=== PATIENT | female | born 1955 | race Caucasian/White ===

== ENCOUNTER → 2016-06-02 | Outpatient (CLI) | payer MEDICARE ==
[~2016-06-02] MED LIST: ASCO500T8 PO; ASPI-496 PO; CALC-451 PO; FLUO10CA7 PO; FLUO40CA2 PO; INSU100I11 SQ; INSU100V8 SQ; INSU200I4 SQ; LEVO100T5 PO; LEVO50TA PO; LEVO75TA5 PO; LINA5TAB PO; LISI-167 PO; LISI1TAB5 PO; MINE3.5O31 LEFTEYE; SIMV20TA PO; SULF15DR5 LEFTEYE; SULF1TAB24 PO; VALP250C59 PO
== END | disposition home or self-care (01) ==
LOC: CFH 12:47
PROVIDERS: ATTEND Nurse Practitioner
DX: J43.8 Other emphysema (principal); R59.9 Enlarged lymph nodes, unspecified
CPT/HCPCS: 71250

== ENCOUNTER 2016-08-25 16:14 | Inpatient (IN) | payer MEDICARE ==
[~2016-08-25] VITALS: Ht 162.6 cm; Wt 70.3 kg
[2016-08-25] MEDS ORDERED: ONDANSETRON 2MG/ML, 2ML IVPush ONE (17:00)
[2016-08-25] MEDS ORDERED: SODIUM CHLORIDE FLUSH 10ML SYR IVF ONE (17:00)
[2016-08-25 17:16] LABS: PH, VENOUS 7.413 pH (7.320-7.420)
[2016-08-25 17:34] LABS: ASPARTATE AMINO TRANSFERASE 43 U/L (15-37); BLOOD UREA NITROGEN 34 mg/dL (7-18)
[2016-08-25 17:41] LABS: IS PT STATUS REG ER OR PRE ER? YES
[2016-08-25] MEDS ORDERED: LORazepam 1MG TABLET ONE (19:05)
[2016-08-25] MEDS ORDERED: LORazepam 1MG TABLET PO ONE (19:30)
[2016-08-25] MEDS ORDERED: SODIUM CHLORIDE 0.9% 1,000ML IVBOLUS ONE (20:00)
[2016-08-25] MEDS ORDERED: hydrALAzine 20 MG/ML, 1ML IVPush PRN (20:30)
[2016-08-25] MEDS ORDERED: POLYETHYLENE GLYCOL 17 GM PACKET PO PRN (20:30)
[2016-08-25] MEDS ORDERED: LORazepam 2 MG/ML, 1ML IVPush PRN (20:30)
[2016-08-25] MEDS ORDERED: HYDROmorphone 2 MG/ML, 1ML IVPush PRN (20:30)
[2016-08-25] MEDS ORDERED: ACETAMINOPHEN 325 MG TABLET PO PRN (20:30)
[2016-08-25] MEDS ORDERED: TEMPLATE NON-FORMULARY MED. (Insulin Glargine,Hum.rec.anlog** (Lantus**) 20 UNITS) SQ SCH (20:30)
[2016-08-25] MEDS ORDERED: ONDANSETRON 2MG/ML, 2ML IVPush PRN (20:30)
[2016-08-25] MEDS ORDERED: OXYcodone IR 5MG TABLET PO PRN (20:30)
[2016-08-25] MEDS ORDERED: BISACODYL 10 MG SUPP PR PRN (20:30)
[2016-08-25] MEDS ORDERED: VALPROATE SODIUM 500 MG in DEXTROSE 5% 100 ML IV SCH (20:30)
[2016-08-25] MEDS ORDERED: ENALAPRILAT 1.25 MG/ML, 2ML IVPush PRN (20:30)
[2016-08-25] MEDS ORDERED: LEVOTHYROXINE 100 MCG INJ IVPush ONE (21:00)
[2016-08-25] MEDS: OCULAR LUBRICANT OPHTH OINT 3.5 GM LEFTEYE SCH (21:00)
[2016-08-25 22:00] VITALS: BP 110/56
[2016-08-25] MEDS: SULFACETAMIDE OPHTH 10%, 5ML LEFTEYE SCH (22:00)
[2016-08-25] MEDS: SODIUM CHLORIDE 0.9% 1,000 ML IV SCH (22:45)
[2016-08-25] MEDS: HEPARIN 5,000 UNITS/ML, 1ML SQ SCH (22:45)
[2016-08-25] MEDS: VALPROIC ACID 250 MG CAPSULE PO SCH (22:46)
[2016-08-25] MEDS: SIMVASTATIN 20 MG TABLET PO SCH (22:46)
[2016-08-25] MEDS: INSULIN ASPART 100 UNITS/ML, PEN SQ-INSULIN SCH (22:47)
[2016-08-25] MEDS: INSULIN DETEMIR 100 UNITS/ML, PEN SQ-INSULIN SCH (22:47)
[2016-08-26 01:47] VITALS: BP 119/71
[2016-08-26] MEDS: HEPARIN 5,000 UNITS/ML, 1ML SQ SCH ×3 (05:10→20:40)
[2016-08-26 06:00] LABS: ASPARTATE AMINO TRANSFERASE 21 U/L (15-37); BLOOD UREA NITROGEN 31 mg/dL (7-18)
[2016-08-26] MEDS: SULFACETAMIDE OPHTH 10%, 5ML LEFTEYE SCH ×8 (08:00→22:00)
[2016-08-26 08:10] VITALS: BP 155/84
[2016-08-26] MEDS: CALCIUM/VITAMIN D3 250-125 TABLET PO SCH (08:45)
[2016-08-26] MEDS: ASCORBIC ACID 500 MG TABLET PO SCH (08:45)
[2016-08-26] MEDS: LISINOPRIL 20 MG TABLET PO SCH (08:45)
[2016-08-26] MEDS: FLUOXETINE 20 MG CAPSULE PO SCH (08:45)
[2016-08-26] MEDS: VALPROIC ACID 250 MG CAPSULE PO SCH ×2 (08:45→20:38)
[2016-08-26] MEDS: SENNA/DOCUSATE TABLET PO SCH (08:46)
[2016-08-26] MEDS: ASPIRIN 81 MG TABLET EC PO SCH (08:46)
[2016-08-26] MEDS: INSULIN DETEMIR 100 UNITS/ML, PEN SQ-INSULIN SCH (08:58)
[2016-08-26] MEDS: INSULIN ASPART 100 UNITS/ML, PEN SQ-INSULIN SCH ×4 (08:58→20:40)
[2016-08-26] MEDS: SODIUM CHLORIDE 0.9% 1,000 ML IV SCH (08:59)
[2016-08-26] MEDS: HYDROCHLOROTHIAZIDE 12.5 MG CAPSULE PO SCH (08:59)
[2016-08-26] MEDS ORDERED: LEVOTHYROXINE 100 MCG TABLET PO SCH (09:00)
[2016-08-26] MEDS ORDERED: LEVOTHYROXINE 125 MCG TABLET PO SCH (09:00)
[2016-08-26 15:06] VITALS: BP 112/56
[2016-08-26 15:30] LABS: IS PT STATUS REG ER OR PRE ER? NO
[2016-08-26] MEDS ORDERED: MAGNESIUM SULFATE PMX 2GM/50ML 50 ML IV ONE (16:30)
[2016-08-26 19:35] VITALS: BP 106/62
[2016-08-26] MEDS: SIMVASTATIN 20 MG TABLET PO SCH (20:39)
[2016-08-26] MEDS ORDERED: INSULIN DETEMIR 100 UNITS/ML, PEN SQ-INSULIN SCH (21:00)
[2016-08-26] MEDS: OCULAR LUBRICANT OPHTH OINT 3.5 GM LEFTEYE SCH (21:00)
[2016-08-27 01:11] VITALS: BP 148/75
[2016-08-27] MEDS: LEVOTHYROXINE 100 MCG TABLET PO SCH (05:22)
[2016-08-27] MEDS: HEPARIN 5,000 UNITS/ML, 1ML SQ SCH ×3 (05:22→22:24)
[2016-08-27 06:01] LABS: BLOOD UREA NITROGEN 26 mg/dL (7-18)
[2016-08-27 07:24] VITALS: BP 129/74
[2016-08-27] MEDS: SULFACETAMIDE OPHTH 10%, 5ML LEFTEYE SCH ×8 (07:50→22:23)
[2016-08-27] MEDS: ASCORBIC ACID 500 MG TABLET PO SCH (08:11)
[2016-08-27] MEDS: INSULIN ASPART 100 UNITS/ML, PEN SQ-INSULIN SCH ×4 (08:11→21:14)
[2016-08-27] MEDS: ASPIRIN 81 MG TABLET EC PO SCH (08:11)
[2016-08-27] MEDS: LISINOPRIL 20 MG TABLET PO SCH (08:11)
[2016-08-27] MEDS: CALCIUM/VITAMIN D3 250-125 TABLET PO SCH (08:11)
[2016-08-27] MEDS: FLUOXETINE 20 MG CAPSULE PO SCH (08:11)
[2016-08-27] MEDS: HYDROCHLOROTHIAZIDE 12.5 MG CAPSULE PO SCH (08:12)
[2016-08-27] MEDS: VALPROIC ACID 250 MG CAPSULE PO SCH ×2 (08:12→21:12)
[2016-08-27] MEDS: SENNA/DOCUSATE TABLET PO SCH (09:00)
[2016-08-27] MEDS: INSULIN DETEMIR 100 UNITS/ML, PEN SQ-INSULIN SCH ×2 (09:51→21:13)
[2016-08-27 12:55] VITALS: BP 130/70
[2016-08-27] MEDS ORDERED: VALPROATE SODIUM 500 MG in DEXTROSE 5% 100 ML IV ONE (18:09)
[2016-08-27 20:00] VITALS: BP 112/58
[2016-08-27] MEDS: OCULAR LUBRICANT OPHTH OINT 3.5 GM LEFTEYE SCH (21:00)
[2016-08-27] MEDS: SIMVASTATIN 20 MG TABLET PO SCH (21:13)
[2016-08-28 02:00] VITALS: BP 133/69
[2016-08-28 05:38] LABS: BLOOD UREA NITROGEN 28 mg/dL (7-18)
[2016-08-28] MEDS: LEVOTHYROXINE 100 MCG TABLET PO SCH (06:20)
[2016-08-28] MEDS: HEPARIN 5,000 UNITS/ML, 1ML SQ SCH ×3 (06:20→22:42)
[2016-08-28 07:00] VITALS: BP 124/70
[2016-08-28] MEDS: ASCORBIC ACID 500 MG TABLET PO SCH (08:49)
[2016-08-28] MEDS: FLUOXETINE 20 MG CAPSULE PO SCH (08:49)
[2016-08-28] MEDS: CALCIUM/VITAMIN D3 250-125 TABLET PO SCH (08:49)
[2016-08-28] MEDS: SENNA/DOCUSATE TABLET PO SCH (08:49)
[2016-08-28] MEDS: HYDROCHLOROTHIAZIDE 12.5 MG CAPSULE PO SCH (08:49)
[2016-08-28] MEDS: ASPIRIN 81 MG TABLET EC PO SCH (08:49)
[2016-08-28] MEDS: LISINOPRIL 20 MG TABLET PO SCH (08:49)
[2016-08-28] MEDS: VALPROIC ACID 250 MG CAPSULE PO SCH ×3 (08:49→21:34)
[2016-08-28] MEDS: SULFACETAMIDE OPHTH 10%, 5ML LEFTEYE SCH ×8 (08:50→22:42)
[2016-08-28] MEDS: INSULIN ASPART 100 UNITS/ML, PEN SQ-INSULIN SCH ×4 (08:50→21:35)
[2016-08-28] MEDS: INSULIN DETEMIR 100 UNITS/ML, PEN SQ-INSULIN SCH ×2 (08:51→21:34)
[2016-08-28 12:36] VITALS: BP 135/76
[2016-08-28 20:00] VITALS: BP 126/68
[2016-08-28] MEDS: OCULAR LUBRICANT OPHTH OINT 3.5 GM LEFTEYE SCH (21:34)
[2016-08-28] MEDS: SIMVASTATIN 20 MG TABLET PO SCH (22:42)
[2016-08-29 02:00] VITALS: BP 135/75
[2016-08-29 05:55] LABS: BLOOD UREA NITROGEN 27 mg/dL (7-18)
[2016-08-29] MEDS: HEPARIN 5,000 UNITS/ML, 1ML SQ SCH ×3 (06:29→22:11)
[2016-08-29] MEDS: LEVOTHYROXINE 100 MCG TABLET PO SCH (06:29)
[2016-08-29 06:47] VITALS: BP 115/68
[2016-08-29] MEDS: CALCIUM/VITAMIN D3 250-125 TABLET PO SCH (07:48)
[2016-08-29] MEDS: ASCORBIC ACID 500 MG TABLET PO SCH (07:48)
[2016-08-29] MEDS: ASPIRIN 81 MG TABLET EC PO SCH (07:48)
[2016-08-29] MEDS: SENNA/DOCUSATE TABLET PO SCH (07:48)
[2016-08-29] MEDS: SULFACETAMIDE OPHTH 10%, 5ML LEFTEYE SCH ×8 (07:48→22:10)
[2016-08-29] MEDS: HYDROCHLOROTHIAZIDE 12.5 MG CAPSULE PO SCH (07:49)
[2016-08-29] MEDS: FLUOXETINE 20 MG CAPSULE PO SCH (07:49)
[2016-08-29] MEDS: LISINOPRIL 20 MG TABLET PO SCH (07:49)
[2016-08-29] MEDS: VALPROIC ACID 250 MG CAPSULE PO SCH ×3 (07:49→21:13)
[2016-08-29] MEDS: INSULIN ASPART 100 UNITS/ML, PEN SQ-INSULIN SCH ×4 (07:50→21:15)
[2016-08-29] MEDS: INSULIN DETEMIR 100 UNITS/ML, PEN SQ-INSULIN SCH ×2 (07:50→21:14)
[2016-08-29 12:48] VITALS: BP 129/74
[2016-08-29 20:00] VITALS: BP 117/71
[2016-08-29] MEDS: OCULAR LUBRICANT OPHTH OINT 3.5 GM LEFTEYE SCH (21:13)
[2016-08-29] MEDS: SIMVASTATIN 20 MG TABLET PO SCH (21:14)
[2016-08-30 02:00] VITALS: BP 125/73
[2016-08-30 05:58] LABS: BLOOD UREA NITROGEN 36 mg/dL (7-18)
[2016-08-30] MEDS: LEVOTHYROXINE 100 MCG TABLET PO SCH (06:14)
[2016-08-30] MEDS: HEPARIN 5,000 UNITS/ML, 1ML SQ SCH ×3 (06:15→21:42)
[2016-08-30 06:57] VITALS: BP 129/79
[2016-08-30] MEDS: INSULIN ASPART 100 UNITS/ML, PEN SQ-INSULIN SCH ×4 (08:44→20:51)
[2016-08-30] MEDS: SULFACETAMIDE OPHTH 10%, 5ML LEFTEYE SCH ×8 (08:44→23:11)
[2016-08-30] MEDS: HYDROCHLOROTHIAZIDE 12.5 MG CAPSULE PO SCH (08:45)
[2016-08-30] MEDS: CALCIUM/VITAMIN D3 250-125 TABLET PO SCH (08:45)
[2016-08-30] MEDS: VALPROIC ACID 250 MG CAPSULE PO SCH ×3 (08:45→20:50)
[2016-08-30] MEDS: LISINOPRIL 20 MG TABLET PO SCH (08:45)
[2016-08-30] MEDS: INSULIN DETEMIR 100 UNITS/ML, PEN SQ-INSULIN SCH ×2 (08:45→20:50)
[2016-08-30] MEDS: ASPIRIN 81 MG TABLET EC PO SCH (08:45)
[2016-08-30] MEDS: SENNA/DOCUSATE TABLET PO SCH (08:46)
[2016-08-30] MEDS: ASCORBIC ACID 500 MG TABLET PO SCH (08:46)
[2016-08-30] MEDS: FLUOXETINE 20 MG CAPSULE PO SCH (08:46)
[2016-08-30 12:22] VITALS: BP 110/59
[2016-08-30] MEDS ORDERED: ZONISAMIDE 50 MG CAPSULE PO SCH (14:30)
[2016-08-30] MEDS ORDERED: ZONISAMIDE 50 MG CAPSULE PO ONE (15:30)
[2016-08-30 20:07] VITALS: BP 108/71
[2016-08-30] MEDS: SIMVASTATIN 20 MG TABLET PO SCH (20:50)
[2016-08-30] MEDS: OCULAR LUBRICANT OPHTH OINT 3.5 GM LEFTEYE SCH (21:42)
[2016-08-31 02:06] VITALS: BP 114/71
[2016-08-31] MEDS: HEPARIN 5,000 UNITS/ML, 1ML SQ SCH ×3 (05:44→21:26)
[2016-08-31] MEDS: LEVOTHYROXINE 112 MCG TABLET PO SCH (06:12)
[2016-08-31 06:20] LABS: ASPARTATE AMINO TRANSFERASE 16 U/L (15-37); BLOOD UREA NITROGEN 36 mg/dL (7-18)
[2016-08-31 06:39] VITALS: BP 103/66
[2016-08-31] MEDS: INSULIN ASPART 100 UNITS/ML, PEN SQ-INSULIN SCH ×4 (08:03→20:47)
[2016-08-31] MEDS: INSULIN DETEMIR 100 UNITS/ML, PEN SQ-INSULIN SCH ×2 (08:04→20:47)
[2016-08-31] MEDS: SULFACETAMIDE OPHTH 10%, 5ML LEFTEYE SCH ×8 (08:04→21:26)
[2016-08-31] MEDS: HYDROCHLOROTHIAZIDE 12.5 MG CAPSULE PO SCH (08:05)
[2016-08-31] MEDS: FLUOXETINE 20 MG CAPSULE PO SCH (08:05)
[2016-08-31] MEDS: VALPROIC ACID 250 MG CAPSULE PO SCH ×3 (08:05→20:46)
[2016-08-31] MEDS: ASCORBIC ACID 500 MG TABLET PO SCH (08:05)
[2016-08-31] MEDS: CALCIUM/VITAMIN D3 250-125 TABLET PO SCH (08:05)
[2016-08-31] MEDS: ASPIRIN 81 MG TABLET EC PO SCH (08:05)
[2016-08-31] MEDS: LISINOPRIL 20 MG TABLET PO SCH (08:05)
[2016-08-31] MEDS: SENNA/DOCUSATE TABLET PO SCH (08:06)
[2016-08-31] MEDS: ZONISAMIDE 50 MG CAPSULE PO SCH (08:06)
[2016-08-31 12:37] VITALS: BP 118/70
[2016-08-31] MEDS: SIMVASTATIN 20 MG TABLET PO SCH (20:46)
[2016-08-31] MEDS: OCULAR LUBRICANT OPHTH OINT 3.5 GM LEFTEYE SCH (20:46)
[2016-08-31 21:00] VITALS: BP 111/66
[2016-09-01 01:54] VITALS: BP 107/68
[2016-09-01 05:50] LABS: BLOOD UREA NITROGEN 31 mg/dL (7-18)
[2016-09-01] MEDS: LEVOTHYROXINE 112 MCG TABLET PO SCH (05:52)
[2016-09-01] MEDS: HEPARIN 5,000 UNITS/ML, 1ML SQ SCH ×3 (05:52→21:27)
[2016-09-01 08:03] VITALS: BP 96/60
[2016-09-01] MEDS: INSULIN DETEMIR 100 UNITS/ML, PEN SQ-INSULIN SCH ×2 (08:41→22:16)
[2016-09-01] MEDS: INSULIN ASPART 100 UNITS/ML, PEN SQ-INSULIN SCH ×4 (08:41→22:16)
[2016-09-01] MEDS: FLUOXETINE 20 MG CAPSULE PO SCH (08:42)
[2016-09-01] MEDS: SULFACETAMIDE OPHTH 10%, 5ML LEFTEYE SCH ×8 (08:43→22:00)
[2016-09-01] MEDS: VALPROIC ACID 250 MG CAPSULE PO SCH ×3 (08:43→21:27)
[2016-09-01] MEDS: CALCIUM/VITAMIN D3 250-125 TABLET PO SCH (08:44)
[2016-09-01] MEDS: ASPIRIN 81 MG TABLET EC PO SCH (08:44)
[2016-09-01] MEDS: HYDROCHLOROTHIAZIDE 12.5 MG CAPSULE PO SCH ×2 (08:44→08:47)
[2016-09-01] MEDS: LISINOPRIL 20 MG TABLET PO SCH ×2 (08:44→08:47)
[2016-09-01] MEDS: SENNA/DOCUSATE TABLET PO SCH (08:44)
[2016-09-01] MEDS: ASCORBIC ACID 500 MG TABLET PO SCH (08:44)
[2016-09-01] MEDS: ZONISAMIDE 50 MG CAPSULE PO SCH (08:45)
[2016-09-01 08:46] VITALS: BP 99/61
[2016-09-01 13:26] VITALS: BP 107/68
[2016-09-01 20:00] VITALS: BP 106/67
[2016-09-01] MEDS: SIMVASTATIN 20 MG TABLET PO SCH (21:27)
[2016-09-01] MEDS: OCULAR LUBRICANT OPHTH OINT 3.5 GM LEFTEYE SCH (21:28)
[2016-09-02 01:19] VITALS: BP 99/61
[2016-09-02] MEDS: LEVOTHYROXINE 112 MCG TABLET PO SCH (05:20)
[2016-09-02] MEDS: HEPARIN 5,000 UNITS/ML, 1ML SQ SCH ×2 (05:20→12:57)
[2016-09-02 06:24] LABS: BLOOD UREA NITROGEN 36 mg/dL (7-18)
[2016-09-02 07:44] VITALS: BP 103/65
[2016-09-02] MEDS: VALPROIC ACID 250 MG CAPSULE PO SCH (08:55)
[2016-09-02] MEDS: SULFACETAMIDE OPHTH 10%, 5ML LEFTEYE SCH ×3 (08:55→12:57)
[2016-09-02] MEDS: FLUOXETINE 20 MG CAPSULE PO SCH (08:55)
[2016-09-02] MEDS: CALCIUM/VITAMIN D3 250-125 TABLET PO SCH (08:55)
[2016-09-02] MEDS: ASCORBIC ACID 500 MG TABLET PO SCH (08:55)
[2016-09-02] MEDS: HYDROCHLOROTHIAZIDE 12.5 MG CAPSULE PO SCH (08:55)
[2016-09-02] MEDS: ASPIRIN 81 MG TABLET EC PO SCH (08:55)
[2016-09-02] MEDS: LISINOPRIL 20 MG TABLET PO SCH (08:56)
[2016-09-02] MEDS: ZONISAMIDE 50 MG CAPSULE PO SCH (08:56)
[2016-09-02] MEDS: INSULIN DETEMIR 100 UNITS/ML, PEN SQ-INSULIN SCH (08:56)
[2016-09-02] MEDS: SENNA/DOCUSATE TABLET PO SCH (08:57)
[2016-09-02] MEDS: INSULIN ASPART 100 UNITS/ML, PEN SQ-INSULIN SCH ×2 (08:57→12:57)
[2016-09-02 13:24] VITALS: BP 95/60
[2016-09-02] MEDS ORDERED: ZONI50CA2 PO (13:56)
[2016-09-02] MEDS ORDERED: DIVA500T2 PO (15:06)
[2016-09-02] MEDS ORDERED: FLUO60TA PO (15:06)
[2016-09-02] MEDS ORDERED: LEVO112T2 PO (15:07)
== END 2016-09-02 15:38 | disposition home or self-care (01) | DRG 100 ==
LOC: ED 18:59 → EDIP 20:07 → 4EST 21:13
PROVIDERS: ADMIT Internal Medicine; ATTEND Hospitalist
DX: G40.209 Localization-related (focal) (partial) symptomatic epilepsy and epileptic syndromes with complex partial seizures, not intractable, without status epilepticus (principal); G93.41 Metabolic encephalopathy; R53.2 Functional quadriplegia; E44.0 Moderate protein-calorie malnutrition; E03.9 Hypothyroidism, unspecified; I10 Essential (primary) hypertension; E05.00 Thyrotoxicosis with diffuse goiter without thyrotoxic crisis or storm; Z88.6 Allergy status to analgesic agent; E10.21 Type 1 diabetes mellitus with diabetic nephropathy; E10.22 Type 1 diabetes mellitus with diabetic chronic kidney disease; E10.65 Type 1 diabetes mellitus with hyperglycemia; F32.9 Major depressive disorder, single episode, unspecified; H05.20 Unspecified exophthalmos; H53.2 Diplopia; I12.9 Hypertensive chronic kidney disease with stage 1 through stage 4 chronic kidney disease, or unspecified chronic kidney disease; I48.91 Unspecified atrial fibrillation; M81.0 Age-related osteoporosis without current pathological fracture; N18.3 Chronic kidney disease, stage 3 (moderate); Z79.899 Other long term (current) drug therapy; Z87.891 Personal history of nicotine dependence; Z91.14 Patient's other noncompliance with medication regimen; Z68.26 Body mass index [BMI] 26.0-26.9, adult; R00.1 Bradycardia, unspecified
CPT/HCPCS: 36415; 70450; 70551; 71010; 80048; 80053; 80061; 80164; 81003; 82010; 82607; 82803; 82947; 82962; 83036; 83735; 84100; 84439; 84443; 84481; 84484; 85025; 93005; 93306; 95819; 95951; 99285; J1644; J1815; J2405; J2060; J3475; J7030

== ENCOUNTER → 2016-11-10 | Outpatient (CLI) | payer MEDICARE ==
[~2016-11-10] MED LIST changes: +DIVA500T2 PO; +FLUO60TA PO; +GADOBUTROL 7.5 MMOL/7.5 ML PFS ONE; +LEVO112T2 PO; +ZONI50CA2 PO
== END | disposition home or self-care (01) ==
LOC: RAD 15:41
PROVIDERS: ATTEND Psychiatry & Neurology Neurology
DX: E05.00 Thyrotoxicosis with diffuse goiter without thyrotoxic crisis or storm (principal); H05.20 Unspecified exophthalmos
CPT/HCPCS: 70480; 70543; A9585

== ENCOUNTER 2016-11-25 12:18 | Inpatient (IN) | payer MEDICARE ==
[~2016-11-25] VITALS: Ht 162.6 cm; Wt 66.2 kg
[~2016-11-25 12:18] MED LIST changes: -GADOBUTROL 7.5 MMOL/7.5 ML PFS ONE
[2016-11-25] MEDS ORDERED: SODIUM CHLORIDE FLUSH 10ML SYR IVF ONE (13:00)
[2016-11-25 13:01] LABS: HEMATOCRIT 37.6 % (34.6-47.8); HEMOGLOBIN 12.4 g/dL (11.7-16.4); WHITE BLOOD COUNT 10.3 x10^3/uL (3.4-10)
[2016-11-25 13:13] LABS: ASPARTATE AMINO TRANSFERASE 36 U/L (15-37); BLOOD UREA NITROGEN 45 mg/dL (7-18)
[2016-11-25 13:19] LABS: ACETAMINOPHEN < 2 mcg/mL (10-30)
[2016-11-25] MEDS ORDERED: SODIUM CHLORIDE 0.9%, 500ML IVBOLUS ONE (13:30)
[2016-11-25 15:41] LABS: DAU SCREEN DISCLAIMER
[2016-11-25 15:47] LABS: PATH.CAST-FLAG NOT PRESENT; SPERM-FLAG NOT PRESENT; SRC-FLAG NOT PRESENT; XTAL-FLAG NOT PRESENT; YLC-FLAG NOT PRESENT
[2016-11-25] MEDS ORDERED: HYDROmorphone 1 MG/ML, 1ML IVPush PRN (16:30)
[2016-11-25] MEDS ORDERED: ACETAMINOPHEN 325 MG TABLET PO PRN (18:00)
[2016-11-25] MEDS: INSULIN ASPART 100 UNITS/ML, PEN SQ-INSULIN SCH (21:00)
[2016-11-25] MEDS: LACTATED RINGERS 1,000 ML IV SCH (22:52)
[2016-11-25] MEDS: SIMVASTATIN 20 MG TABLET PO SCH (23:28)
[2016-11-25] MEDS: VALPROIC ACID 250 MG CAPSULE PO SCH (23:29)
[2016-11-26 01:13] VITALS: BP 136/78
[2016-11-26 01:25] VITALS: BP 136/78
[2016-11-26] MEDS: LACTATED RINGERS 1,000 ML IV SCH ×3 (01:52→17:34)
[2016-11-26 06:03] LABS: BLOOD UREA NITROGEN 32 mg/dL (7-18)
[2016-11-26 08:41] VITALS: BP 130/72
[2016-11-26] MEDS: VALPROIC ACID 250 MG CAPSULE PO SCH ×3 (09:58→21:00)
[2016-11-26] MEDS: INSULIN ASPART 100 UNITS/ML, PEN SQ-INSULIN SCH ×4 (11:00→21:22)
[2016-11-26 13:51] VITALS: BP 124/62
[2016-11-26 19:50] VITALS: BP 125/60
[2016-11-26] MEDS: SIMVASTATIN 20 MG TABLET PO SCH (21:22)
[2016-11-27 00:21] VITALS: BP 136/72
[2016-11-27] MEDS: LACTATED RINGERS 1,000 ML IV SCH (01:53)
[2016-11-27 06:10] LABS: BLOOD UREA NITROGEN 22 mg/dL (7-18)
[2016-11-27 07:43] VITALS: BP 153/71
[2016-11-27] MEDS: INSULIN ASPART 100 UNITS/ML, PEN SQ-INSULIN SCH ×2 (08:49→12:27)
[2016-11-27] MEDS: VALPROIC ACID 250 MG CAPSULE PO SCH (08:49)
[2016-11-27] MEDS ORDERED: DIVA500T2 PO (11:50)
== END 2016-11-27 13:03 | disposition home or self-care (01) | DRG 917 ==
LOC: ED 15:40 → EDIP 15:41 → INTOOBSV 15:41 → ED 18:36 → 3NE 11-26 00:03 → OBSVTOIN 11-26 10:31
PROVIDERS: ADMIT Hospitalist; ATTEND Hospitalist
DX: T38.1X1A Poisoning by thyroid hormones and substitutes, accidental (unintentional), initial encounter (principal); G92 Toxic encephalopathy; E10.21 Type 1 diabetes mellitus with diabetic nephropathy; N17.9 Acute kidney failure, unspecified; G40.209 Localization-related (focal) (partial) symptomatic epilepsy and epileptic syndromes with complex partial seizures, not intractable, without status epilepticus; H05.20 Unspecified exophthalmos; N18.3 Chronic kidney disease, stage 3 (moderate); E03.9 Hypothyroidism, unspecified; E10.22 Type 1 diabetes mellitus with diabetic chronic kidney disease; Z88.5 Allergy status to narcotic agent; E05.90 Thyrotoxicosis, unspecified without thyrotoxic crisis or storm; F32.9 Major depressive disorder, single episode, unspecified; I12.9 Hypertensive chronic kidney disease with stage 1 through stage 4 chronic kidney disease, or unspecified chronic kidney disease; M81.0 Age-related osteoporosis without current pathological fracture; Z87.891 Personal history of nicotine dependence; Z90.49 Acquired absence of other specified parts of digestive tract; Z90.710 Acquired absence of both cervix and uterus; Y92.89 Other specified places as the place of occurrence of the external cause
CPT/HCPCS: 36415; 70450; 71010; 76770; 80048; 80053; 80069; 80164; 80307; 80329; 81001; 82140; 82962; 83605; 84436; 84443; 84481; 85025; 87086; 87324; 93005; 96360; G0378; J1815; G0479; G0480; J7040; J7120

== ENCOUNTER 2017-02-16 07:19 | Inpatient (IN) | payer MEDICARE ==
[~2017-02-16] VITALS: Ht 162.6 cm; Wt 73.2 kg
[2017-02-16] MEDS ORDERED: SODIUM CHLORIDE 0.9% 1,000ML IVBOLUS ONE ×2 (07:30→09:00)
[2017-02-16 07:35] LABS: BASOPHILS # (AUTO) 0.07 x10^3/uL (0-0.1); BASOPHILS % (AUTO) 1 % (0-1); EOSINOPHILS # (AUTO) 0.14 x10^3/uL (0-0.4); EOSINOPHILS % (AUTO) 1 % (1-7); LYMPHOCYTES # (AUTO) 2.56 x10^3/uL (1-3.4); LYMPHOCYTES % (AUTO) 20 % (22-44); MD NO; MEAN CORPUSCULAR HEMOGLOBIN 29.3 pg (27.0-34.8); MEAN CORPUSCULAR HGB CONC 33.6 g/dL (32.4-35.8); MEAN CORPUSCULAR VOLUME 87.3 fL (80-100); MEAN PLATELET VOLUME 10.3 fL (7.4-10.4); MONOCYTES # (AUTO) 0.43 x10^3/uL (0.2-0.8); MONOCYTES % (AUTO) 3 % (2-9); NEUTROPHILS % (AUTO) 75 % (42-75); PLATELET COUNT 208 x10^3/uL (130-400); RED BLOOD COUNT 4.52 x10^6/uL (3.82-5.3); RED CELL DISTRIBUTION WIDTH 13.8 % (9.6-15.2)
[2017-02-16 07:47] LABS: ALBUMIN 3.3 g/dL (3.4-5.0); ANION GAP 25 mmol/L (5-15); CHLORIDE 95 mmol/L (98-107); CREATININE 1.66 mg/dL (0.55-1.02)
[2017-02-16] MEDS ORDERED: MORPHINE SULFATE 4 MG/ML, 1ML ONE (08:07)
[2017-02-16] MEDS ORDERED: ONDANSETRON 2MG/ML, 2ML ONE (08:07)
[2017-02-16 08:13] LABS: ACETONE, SERUM Large (80mg/dL) mg/dL (Negative)
[2017-02-16] MEDS ORDERED: FENTANYL PF 100 MCG/2ML ONE (08:18)
[2017-02-16 08:27] LABS: MICROSCOPIC NOT IND
[2017-02-16 08:27] LABS: TROPONIN I < 0.015 ng/mL (0.000-0.045)
[2017-02-16 08:30] LABS: CULTURE INDICATED? NO
[2017-02-16] MEDS ORDERED: ONDANSETRON 2MG/ML, 2ML IVPush ONE (08:30)
[2017-02-16] MEDS ORDERED: FENTANYL PF 100 MCG/2ML IV ONE (08:30)
[2017-02-16] MEDS ORDERED: REGULAR INSULIN 62.5 UNITS in SODIUM CHLORIDE 0.9% 249.375 ML IV SCH (08:42)
[2017-02-16 08:53] LABS: PH, VENOUS 7.112 pH (7.320-7.420)
[2017-02-16] MEDS ORDERED: INSULIN REGULAR 100 UNITS/ML, 3ML VIAL ONE (09:00)
[2017-02-16] MEDS ORDERED: INSULIN REGULAR 100 UNITS/ML, 3ML VIAL IVPush ONE (09:00)
[2017-02-16] MEDS ORDERED: POLYETHYLENE GLYCOL 17 GM PACKET PO PRN (10:00)
[2017-02-16] MEDS ORDERED: REGULAR INSULIN 62.5 UNITS in SODIUM CHLORIDE 0.9% 249.375 ML IV PRN (10:00)
[2017-02-16] MEDS ORDERED: ACETAMINOPHEN 325 MG TABLET PO PRN (10:00)
[2017-02-16] MEDS ORDERED: DOCUSATE 100 MG CAPSULE PO PRN (10:00)
[2017-02-16] MEDS ORDERED: BISACODYL 10 MG SUPP PR PRN (10:00)
[2017-02-16 10:17] LABS: ANION GAP 23 mmol/L (5-15); CALCIUM 7.5 mg/dL (8.5-10.1); CHLORIDE 104 mmol/L (98-107)
[2017-02-16 10:18] LABS: CREATININE 1.51 mg/dL (0.55-1.02)
[2017-02-16 10:27] LABS: HEMOGLOBIN A1C 8.6 % (4.2-6.3)
[2017-02-16] MEDS ORDERED: ZONI100C2 PO (11:33)
[2017-02-16] MEDS: SODIUM CHLORIDE 0.9% 1,000 ML IV SCH ×3 (11:55→21:25)
[2017-02-16] MEDS: HEPARIN 5,000 UNITS/ML, 1ML SQ SCH ×2 (11:55→20:19)
[2017-02-16] MEDS: FAMOTIDINE 20 MG/2 ML IVPush SCH (11:55)
[2017-02-16 14:13] LABS: RAPID INFLUENZA A Negative (Negative); RAPID INFLUENZA B Negative (Negative)
[2017-02-16] MEDS ORDERED: MAGNESIUM SULFATE PMX 4GM/100M 100 ML IV ONE (14:30)
[2017-02-16] MEDS: D5%-0.45% NACL 1,000 ML IV PRN (15:38)
[2017-02-16] MEDS: DIVALPROEX 500 MG TABLET.DR PO SCH ×2 (16:48→20:21)
[2017-02-16 17:35] LABS: ANION GAP 9 mmol/L (5-15); CALCIUM 8.1 mg/dL (8.5-10.1); CHLORIDE 112 mmol/L (98-107); CREATININE 1.48 mg/dL (0.55-1.02)
[2017-02-16] MEDS: SIMVASTATIN 20 MG TABLET PO SCH (20:19)
[2017-02-16] MEDS ORDERED: DIVALPROEX 250 MG TABLET.DR PO SCH (21:00)
[2017-02-16 21:45] LABS: ANION GAP 10 mmol/L (5-15); CHLORIDE 111 mmol/L (98-107); CREATININE 1.37 mg/dL (0.55-1.02)
[2017-02-17] MEDS: D5%-0.45% NACL 1,000 ML IV PRN (01:22)
[2017-02-17 01:54] LABS: ANION GAP 8 mmol/L (5-15); CALCIUM 7.8 mg/dL (8.5-10.1); CHLORIDE 112 mmol/L (98-107); CREATININE 1.45 mg/dL (0.55-1.02)
[2017-02-17] MEDS: HEPARIN 5,000 UNITS/ML, 1ML SQ SCH ×3 (04:41→20:50)
[2017-02-17 04:45] LABS: BASOPHILS # (AUTO) 0.04 x10^3/uL (0-0.1); BASOPHILS % (AUTO) 0 % (0-1); EOSINOPHILS # (AUTO) 0.12 x10^3/uL (0-0.4); EOSINOPHILS % (AUTO) 1 % (1-7); LYMPHOCYTES # (AUTO) 3.55 x10^3/uL (1-3.4); LYMPHOCYTES % (AUTO) 35 % (22-44); MD NO; MEAN CORPUSCULAR HEMOGLOBIN 29.8 pg (27.0-34.8); MEAN CORPUSCULAR VOLUME 87.5 fL (80-100); MEAN PLATELET VOLUME 9.7 fL (7.4-10.4); MONOCYTES # (AUTO) 0.65 x10^3/uL (0.2-0.8); MONOCYTES % (AUTO) 6 % (2-9); NEUTROPHILS # (AUTO) 5.73 x10^3/uL (1.8-6.8); NEUTROPHILS % (AUTO) 57 % (42-75); PLATELET COUNT 162 x10^3/uL (130-400); RED BLOOD COUNT 3.71 x10^6/uL (3.82-5.3)
[2017-02-17 04:50] LABS: ALANINE AMINOTRANSFERASE 18 U/L (12-78); ALBUMIN 2.5 g/dL (3.4-5.0); ANION GAP 8 mmol/L (5-15); CALCIUM 7.4 mg/dL (8.5-10.1); CHLORIDE 113 mmol/L (98-107); CREATININE 1.39 mg/dL (0.55-1.02)
[2017-02-17] MEDS: SODIUM CHLORIDE 0.9% 1,000 ML IV SCH (04:51)
[2017-02-17 04:59] LABS: ALKALINE PHOSPHATASE 59 U/L (45-117); BILIRUBIN,TOTAL 0.2 mg/dL (0.2-1.0); THYROID STIMULATING HORMONE 0.269 mIU/L (0.358-3.740); TOTAL PROTEIN 5.5 g/dL (6.4-8.2)
[2017-02-17] MEDS: INSULIN ASPART 100 UNITS/ML, PEN SQ-INSULIN SCH ×4 (07:00→22:51)
[2017-02-17] MEDS: INSULIN DETEMIR 100 UNITS/ML, PEN SQ-INSULIN SCH ×2 (07:10→22:50)
[2017-02-17] MEDS: FAMOTIDINE 20 MG/2 ML IVPush SCH (09:30)
[2017-02-17] MEDS: FLUOXETINE 20 MG CAPSULE PO SCH (09:30)
[2017-02-17] MEDS: ASPIRIN 81 MG TABLET EC PO SCH (09:30)
[2017-02-17] MEDS: DIVALPROEX 500 MG TABLET.DR PO SCH ×3 (09:30→20:50)
[2017-02-17 11:13] VITALS: BP 107/71
[2017-02-17] MEDS ORDERED: INSU100C5 SQ-INSULIN (12:31)
[2017-02-17] MEDS ORDERED: LEVO100T5 PO (12:31)
[2017-02-17 14:15] VITALS: BP 120/64
[2017-02-17 19:04] VITALS: BP 130/70
[2017-02-17] MEDS: SIMVASTATIN 20 MG TABLET PO SCH (20:50)
[2017-02-18 00:11] VITALS: BP 149/71
[2017-02-18] MEDS ORDERED: INSULIN ASPART 100 UNITS/ML, PEN SQ-INSULIN ONE (01:00)
[2017-02-18 05:37] LABS: MEAN CORPUSCULAR HEMOGLOBIN 29.9 pg (27.0-34.8); MEAN CORPUSCULAR HGB CONC 34.5 g/dL (32.4-35.8); MEAN CORPUSCULAR VOLUME 86.6 fL (80-100); MEAN PLATELET VOLUME 9.9 fL (7.4-10.4); PLATELET COUNT 124 x10^3/uL (130-400); RED BLOOD COUNT 3.52 x10^6/uL (3.82-5.3); RED CELL DISTRIBUTION WIDTH 13.9 % (9.6-15.2)
[2017-02-18 05:43] LABS: CHLORIDE 112 mmol/L (98-107)
[2017-02-18 05:55] LABS: MD YES
[2017-02-18 05:57] LABS: ALANINE AMINOTRANSFERASE 18 U/L (12-78); ALBUMIN 2.5 g/dL (3.4-5.0); ALKALINE PHOSPHATASE 59 U/L (45-117); ANION GAP 8 mmol/L (5-15); BILIRUBIN,TOTAL 0.3 mg/dL (0.2-1.0); CREATININE 1.08 mg/dL (0.55-1.02); TOTAL PROTEIN 5.4 g/dL (6.4-8.2)
[2017-02-18 05:58] LABS: <RBC MORPHOLOGY> NORMAL; BASOS#(MANUAL) 0.05 x10^3/uL (0-0.1); BASOS% (MANUAL) 1 % (0-1); EOS#(MANUAL) 0.21 x10^3/uL (0.0-0.4); EOS% (MANUAL) 4 % (1-7); LYMPH#(MANUAL) 2.29 x10^3/uL (1-3.4); LYMPHS% (MANUAL) 44 % (22-44); MONOS#(MANUAL) 0.21 x10^3/uL (0.3-2.7); MONOS% (MANUAL) 4 % (2-9); SEG#(MANUAL) 2.44 x10^3/uL (1.8-6.8); SEGS% (MANUAL) 47 % (42-75)
[2017-02-18 05:59] LABS: <PLATELET ESTIMATE> ADEQUATE; <PLT MORPHOLOGY> NORMAL PLT MORPH
[2017-02-18] MEDS: HEPARIN 5,000 UNITS/ML, 1ML SQ SCH ×3 (06:16→22:30)
[2017-02-18] MEDS: INSULIN ASPART 100 UNITS/ML, PEN SQ-INSULIN SCH ×4 (06:16→22:31)
[2017-02-18 07:26] VITALS: BP 146/69
[2017-02-18] MEDS: ASPIRIN 81 MG TABLET EC PO SCH (08:36)
[2017-02-18] MEDS: DIVALPROEX 500 MG TABLET.DR PO SCH ×3 (08:36→22:30)
[2017-02-18] MEDS: INSULIN DETEMIR 100 UNITS/ML, PEN SQ-INSULIN SCH ×2 (08:37→22:31)
[2017-02-18] MEDS: FAMOTIDINE 20 MG TABLET PO SCH (08:37)
[2017-02-18] MEDS: FLUOXETINE 20 MG CAPSULE PO SCH (08:37)
[2017-02-18] MEDS ORDERED: POTASSIUM CHLORIDE 20 MEQ TAB.ER.PRT PO ONE (11:00)
[2017-02-18 14:27] VITALS: BP 146/77
[2017-02-18] MEDS: LEVOTHYROXINE 100 MCG TABLET PO SCH (19:10)
[2017-02-18 20:19] VITALS: BP 163/70
[2017-02-18] MEDS: SIMVASTATIN 20 MG TABLET PO SCH (22:30)
[2017-02-19 01:22] VITALS: BP 175/70
[2017-02-19] MEDS ORDERED: LABETALOL 5MG/ML, 20ML IVPush PRN (03:30)
[2017-02-19] MEDS: INSULIN ASPART 100 UNITS/ML, PEN SQ-INSULIN SCH ×4 (04:35→22:13)
[2017-02-19] MEDS: LEVOTHYROXINE 100 MCG TABLET PO SCH (06:04)
[2017-02-19] MEDS: HEPARIN 5,000 UNITS/ML, 1ML SQ SCH ×3 (06:04→22:12)
[2017-02-19 06:06] LABS: MEAN CORPUSCULAR HEMOGLOBIN 29.6 pg (27.0-34.8); MEAN CORPUSCULAR HGB CONC 33.9 g/dL (32.4-35.8); MEAN CORPUSCULAR VOLUME 87.4 fL (80-100); MEAN PLATELET VOLUME 10.3 fL (7.4-10.4); PLATELET COUNT 138 x10^3/uL (130-400); RED BLOOD COUNT 4.08 x10^6/uL (3.82-5.3); RED CELL DISTRIBUTION WIDTH 14.4 % (9.6-15.2)
[2017-02-19 06:13] LABS: ANION GAP 9 mmol/L (5-15); CALCIUM 8.8 mg/dL (8.5-10.1); CHLORIDE 112 mmol/L (98-107); CREATININE 0.99 mg/dL (0.55-1.02)
[2017-02-19 06:23] LABS: BASOPHILS # (AUTO) 0.05 x10^3/uL (0-0.1); BASOPHILS % (AUTO) 1 % (0-1); EOSINOPHILS # (AUTO) 0.23 x10^3/uL (0-0.4); EOSINOPHILS % (AUTO) 4 % (1-7); LYMPHOCYTES # (AUTO) 3.82 x10^3/uL (1-3.4); LYMPHOCYTES % (AUTO) 60 % (22-44); MD SCAN; MONOCYTES # (AUTO) 0.41 x10^3/uL (0.2-0.8); MONOCYTES % (AUTO) 7 % (2-9); NEUTROPHILS # (AUTO) 1.89 x10^3/uL (1.8-6.8); NEUTROPHILS % (AUTO) 30 % (42-75)
[2017-02-19] MEDS: INSULIN DETEMIR 100 UNITS/ML, PEN SQ-INSULIN SCH ×2 (07:22→19:37)
[2017-02-19 07:27] VITALS: BP 160/77
[2017-02-19] MEDS: DIVALPROEX 500 MG TABLET.DR PO SCH ×3 (10:22→22:12)
[2017-02-19] MEDS: FAMOTIDINE 20 MG TABLET PO SCH ×2 (10:22→22:12)
[2017-02-19] MEDS: FLUOXETINE 20 MG CAPSULE PO SCH (10:23)
[2017-02-19] MEDS: ASPIRIN 81 MG TABLET EC PO SCH (10:23)
[2017-02-19 13:25] VITALS: BP 147/68
[2017-02-19 21:46] LABS: CULTURE INDICATED? NO; MICROSCOPIC NOT IND
[2017-02-19] MEDS: SIMVASTATIN 20 MG TABLET PO SCH (22:12)
[2017-02-19 22:32] VITALS: BP 166/70
[2017-02-20] VITALS (7 sets, daily range): BP systolic 101–193; BP diastolic 62–80
[2017-02-20] MEDS: LEVOTHYROXINE 100 MCG TABLET PO SCH (05:32)
[2017-02-20] MEDS: HEPARIN 5,000 UNITS/ML, 1ML SQ SCH ×3 (05:32→21:31)
[2017-02-20] MEDS: FLUOXETINE 20 MG CAPSULE PO SCH (08:18)
[2017-02-20] MEDS: INSULIN DETEMIR 100 UNITS/ML, PEN SQ-INSULIN SCH ×2 (08:19→20:04)
[2017-02-20] MEDS: DIVALPROEX 500 MG TABLET.DR PO SCH ×3 (08:19→21:31)
[2017-02-20] MEDS: FAMOTIDINE 20 MG TABLET PO SCH (08:19)
[2017-02-20] MEDS: ASPIRIN 81 MG TABLET EC PO SCH (08:19)
[2017-02-20] MEDS: INSULIN ASPART 100 UNITS/ML, PEN SQ-INSULIN SCH ×4 (08:20→23:37)
[2017-02-20] MEDS ORDERED: INSULIN REGULAR 100 UNITS/ML, 3ML VIAL SQ-INSULIN ONE (12:30)
[2017-02-20 15:21] LABS: ANION GAP 10 mmol/L (5-15); CALCIUM 8.2 mg/dL (8.5-10.1); CHLORIDE 95 mmol/L (98-107); CREATININE 1.55 mg/dL (0.55-1.02)
[2017-02-20] MEDS ORDERED: INSULIN ASPART 100 UNITS/ML, PEN SQ-INSULIN ONE ×2 (16:00)
[2017-02-20] MEDS ORDERED: SODIUM CHLORIDE 0.9% 1,000ML IVBOLUS ONE ×2 (16:00→19:00)
[2017-02-20] MEDS ORDERED: INSULIN ASPART 100 UNITS/ML, PEN SQ-INSULIN SCH (16:00)
[2017-02-20 17:51] LABS: ANION GAP 12 mmol/L (5-15); CALCIUM 7.7 mg/dL (8.5-10.1); CHLORIDE 97 mmol/L (98-107); CREATININE 1.45 mg/dL (0.55-1.02)
[2017-02-20] MEDS: SODIUM CHLORIDE 0.9% 1,000 ML IV SCH (18:36)
[2017-02-20] MEDS: LABETALOL 5MG/ML, 20ML IVPush PRN (20:04)
[2017-02-20] MEDS: SIMVASTATIN 20 MG TABLET PO SCH (21:31)
[2017-02-20 22:56] LABS: CALCIUM 7.4 mg/dL (8.5-10.1); CREATININE 1.52 mg/dL (0.55-1.02)
[2017-02-20 23:14] LABS: ANION GAP 13 mmol/L (5-15); CHLORIDE 99 mmol/L (98-107)
[2017-02-21 00:27] LABS: ACETONE, SERUM Moderate(40mg/dL) mg/dL (Negative)
[2017-02-21] MEDS ORDERED: SODIUM CHLORIDE 0.9% 1,000ML IVBOLUS ONE (01:00)
[2017-02-21 02:00] VITALS: BP 130/60
[2017-02-21] MEDS: SODIUM CHLORIDE 0.9% 1,000 ML IV SCH ×2 (02:43→16:00)
[2017-02-21] MEDS: INSULIN ASPART 100 UNITS/ML, PEN SQ-INSULIN SCH ×4 (02:44→19:32)
[2017-02-21 04:50] LABS: ANION GAP 8 mmol/L (5-15); CALCIUM 7.6 mg/dL (8.5-10.1); CHLORIDE 106 mmol/L (98-107); CREATININE 1.34 mg/dL (0.55-1.02)
[2017-02-21] MEDS: LEVOTHYROXINE 100 MCG TABLET PO SCH (07:15)
[2017-02-21] MEDS: HEPARIN 5,000 UNITS/ML, 1ML SQ SCH ×2 (07:15→16:00)
[2017-02-21] MEDS: DIVALPROEX 500 MG TABLET.DR PO SCH ×3 (08:01→21:18)
[2017-02-21] MEDS: FAMOTIDINE 20 MG TABLET PO SCH (08:01)
[2017-02-21] MEDS: FLUOXETINE 20 MG CAPSULE PO SCH (08:01)
[2017-02-21] MEDS: ASPIRIN 81 MG TABLET EC PO SCH (08:01)
[2017-02-21 09:49] VITALS: BP 145/60
[2017-02-21 15:14] VITALS: BP 161/67
[2017-02-21 19:03] VITALS: BP 174/84
[2017-02-21] MEDS: INSULIN DETEMIR 100 UNITS/ML, PEN SQ-INSULIN SCH (19:32)
[2017-02-21] MEDS: LABETALOL 5MG/ML, 20ML IVPush PRN (19:33)
[2017-02-21 20:15] VITALS: BP 158/69
[2017-02-21] MEDS: SIMVASTATIN 20 MG TABLET PO SCH (21:18)
[2017-02-22] MEDS: HEPARIN 5,000 UNITS/ML, 1ML SQ SCH ×4 (00:01→23:18)
[2017-02-22] MEDS: INSULIN ASPART 100 UNITS/ML, PEN SQ-INSULIN SCH ×4 (01:00→18:05)
[2017-02-22 02:45] VITALS: BP 158/66
[2017-02-22 03:14] LABS: CULTURE INDICATED? NO; MICROSCOPIC NOT IND
[2017-02-22] MEDS: LEVOTHYROXINE 100 MCG TABLET PO SCH (06:00)
[2017-02-22] MEDS: SODIUM CHLORIDE 0.9% 1,000 ML IV SCH ×2 (06:10→22:55)
[2017-02-22 08:17] VITALS: BP 149/62
[2017-02-22] MEDS: INSULIN DETEMIR 100 UNITS/ML, PEN SQ-INSULIN SCH ×2 (09:03→18:06)
[2017-02-22] MEDS: DIVALPROEX 500 MG TABLET.DR PO SCH ×3 (09:04→19:48)
[2017-02-22] MEDS: FLUOXETINE 20 MG CAPSULE PO SCH (09:04)
[2017-02-22] MEDS: FAMOTIDINE 20 MG TABLET PO SCH (09:04)
[2017-02-22] MEDS: ASPIRIN 81 MG TABLET EC PO SCH (09:04)
[2017-02-22 15:16] VITALS: BP 168/74
[2017-02-22 18:35] VITALS: BP_SYST 177; BP_SYST 192; BP_DIAS 71; BP_DIAS 77
[2017-02-22] MEDS: LABETALOL 5MG/ML, 20ML IVPush PRN (18:43)
[2017-02-22] MEDS: HYDROCHLOROTHIAZIDE 12.5 MG CAPSULE PO SCH (19:48)
[2017-02-22] MEDS: SIMVASTATIN 20 MG TABLET PO SCH (19:48)
[2017-02-22] MEDS: LISINOPRIL 20 MG TABLET PO SCH (19:49)
[2017-02-23 02:54] VITALS: BP 172/75
[2017-02-23] MEDS: LABETALOL 5MG/ML, 20ML IVPush PRN (03:10)
[2017-02-23] MEDS: LEVOTHYROXINE 100 MCG TABLET PO SCH (06:35)
[2017-02-23 07:24] LABS: BASOPHILS # (AUTO) 0.04 x10^3/uL (0-0.1); BASOPHILS % (AUTO) 1 % (0-1); EOSINOPHILS # (AUTO) 0.38 x10^3/uL (0-0.4); EOSINOPHILS % (AUTO) 7 % (1-7); LYMPHOCYTES # (AUTO) 2.94 x10^3/uL (1-3.4); LYMPHOCYTES % (AUTO) 51 % (22-44); MD NO; MEAN CORPUSCULAR HEMOGLOBIN 29.2 pg (27.0-34.8); MEAN CORPUSCULAR HGB CONC 33.5 g/dL (32.4-35.8); MEAN CORPUSCULAR VOLUME 87.4 fL (80-100); MEAN PLATELET VOLUME 9.9 fL (7.4-10.4); MONOCYTES # (AUTO) 0.29 x10^3/uL (0.2-0.8); MONOCYTES % (AUTO) 5 % (2-9); NEUTROPHILS # (AUTO) 2.15 x10^3/uL (1.8-6.8); NEUTROPHILS % (AUTO) 37 % (42-75); PLATELET COUNT 115 x10^3/uL (130-400); RED BLOOD COUNT 3.38 x10^6/uL (3.82-5.3); RED CELL DISTRIBUTION WIDTH 14.6 % (9.6-15.2)
[2017-02-23 07:29] LABS: ALBUMIN 2.6 g/dL (3.4-5.0); ANION GAP 9 mmol/L (5-15); CALCIUM 7.9 mg/dL (8.5-10.1); CHLORIDE 111 mmol/L (98-107)
[2017-02-23 07:30] LABS: CREATININE 0.98 mg/dL (0.55-1.02)
[2017-02-23] MEDS: INSULIN DETEMIR 100 UNITS/ML, PEN SQ-INSULIN SCH (08:01)
[2017-02-23] MEDS: INSULIN ASPART 100 UNITS/ML, PEN SQ-INSULIN SCH ×2 (08:02→11:26)
[2017-02-23] MEDS: HEPARIN 5,000 UNITS/ML, 1ML SQ SCH (08:04)
[2017-02-23] MEDS: HYDROCHLOROTHIAZIDE 12.5 MG CAPSULE PO SCH (08:05)
[2017-02-23] MEDS: DIVALPROEX 500 MG TABLET.DR PO SCH (08:05)
[2017-02-23] MEDS: FAMOTIDINE 20 MG TABLET PO SCH (08:05)
[2017-02-23] MEDS: ASPIRIN 81 MG TABLET EC PO SCH (08:05)
[2017-02-23] MEDS: LISINOPRIL 20 MG TABLET PO SCH (08:06)
[2017-02-23] MEDS: FLUOXETINE 20 MG CAPSULE PO SCH (08:06)
[2017-02-23] MEDS: SODIUM CHLORIDE 0.9% 1,000 ML IV SCH (08:07)
[2017-02-23 08:45] VITALS: BP 161/96
== END 2017-02-23 14:32 | disposition home health service (06) | DRG 637 ==
LOC: ED 09:15 → EDIP 09:20 → ED 09:50 → CCU 10:15 → 5SO 02-17 11:08 → 3NE 02-18 20:45 → DCLOUNGE 02-23 14:25
PROVIDERS: ADMIT Hospitalist; ATTEND Hospitalist
DX: E11.10 Type 2 diabetes mellitus with ketoacidosis without coma (principal); N17.0 Acute kidney failure with tubular necrosis; E87.1 Hypo-osmolality and hyponatremia; F32.9 Major depressive disorder, single episode, unspecified; G40.909 Epilepsy, unspecified, not intractable, without status epilepticus; D72.829 Elevated white blood cell count, unspecified; E05.00 Thyrotoxicosis with diffuse goiter without thyrotoxic crisis or storm; E11.649 Type 2 diabetes mellitus with hypoglycemia without coma; E11.22 Type 2 diabetes mellitus with diabetic chronic kidney disease; E86.0 Dehydration; E87.6 Hypokalemia; E89.0 Postprocedural hypothyroidism; I12.9 Hypertensive chronic kidney disease with stage 1 through stage 4 chronic kidney disease, or unspecified chronic kidney disease; N18.9 Chronic kidney disease, unspecified; Z90.49 Acquired absence of other specified parts of digestive tract; Z90.710 Acquired absence of both cervix and uterus; Z79.4 Long term (current) use of insulin; Z79.899 Other long term (current) drug therapy; Z79.82 Long term (current) use of aspirin
CPT/HCPCS: 36415; 71045; 80048; 80053; 80164; 81003; 82010; 82040; 82803; 82947; 82962; 83036; 83735; 84100; 84443; 84484; 85025; 87081; 87400; 93005; 96361; 96374; 96375; J1644; J1815; J2405; J3010; J3475; J7030; J7050; S0028

== ENCOUNTER → 2017-03-18 | Outpatient (CLI) | payer MEDICARE ==
[~2017-03-18] MED LIST changes: +INSU100C5 SQ-INSULIN; +ZONI100C2 PO
== END | disposition home or self-care (01) ==
LOC: CFH 13:55
PROVIDERS: ATTEND Nurse Practitioner
DX: I70.0 Atherosclerosis of aorta (principal); J43.9 Emphysema, unspecified; M85.88 Other specified disorders of bone density and structure, other site; Z90.49 Acquired absence of other specified parts of digestive tract
CPT/HCPCS: 74176

== ENCOUNTER 2017-07-02 11:53 | Inpatient (IN) | payer MEDICARE ==
[~2017-07-02] VITALS: Ht 162.6 cm; Wt 67.8 kg
[2017-07-02 14:47] LABS: BASOPHILS # (AUTO) 0.04 x10^3/uL (0-0.1); BASOPHILS % (AUTO) 0 % (0-1); EOSINOPHILS # (AUTO) 0.15 x10^3/uL (0-0.4); EOSINOPHILS % (AUTO) 1 % (1-7); LYMPHOCYTES # (AUTO) 2.67 x10^3/uL (1-3.4); LYMPHOCYTES % (AUTO) 26 % (22-44); MD NO; MEAN CORPUSCULAR HEMOGLOBIN 30.2 pg (27.0-34.8); MEAN CORPUSCULAR HGB CONC 33.7 g/dL (32.4-35.8); MEAN CORPUSCULAR VOLUME 89.6 fL (80-100); MEAN PLATELET VOLUME 8.7 fL (7.4-10.4); MONOCYTES # (AUTO) 0.95 x10^3/uL (0.2-0.8); MONOCYTES % (AUTO) 9 % (2-9); NEUTROPHILS # (AUTO) 6.46 x10^3/uL (1.8-6.8); NEUTROPHILS % (AUTO) 63 % (42-75); PLATELET COUNT 294 x10^3/uL (130-400); RED BLOOD COUNT 4.41 x10^6/uL (3.82-5.3); RED CELL DISTRIBUTION WIDTH 13.3 % (9.6-15.2)
[2017-07-02 14:48] LABS: ALANINE AMINOTRANSFERASE 12 U/L (12-78); ALBUMIN 3.1 g/dL (3.4-5.0); ANION GAP 9 mmol/L (5-15); CHLORIDE 101 mmol/L (98-107); CREATININE 1.73 mg/dL (0.55-1.02)
[2017-07-02 14:50] LABS: ALKALINE PHOSPHATASE 76 U/L (45-117); BILIRUBIN,TOTAL 0.4 mg/dL (0.2-1.0); TOTAL PROTEIN 7.4 g/dL (6.4-8.2); TROPONIN I < 0.015 ng/mL (0.000-0.045)
[2017-07-02 16:40] LABS: MICROSCOPIC NOT IND
[2017-07-02 16:45] LABS: CULTURE INDICATED? NO
[2017-07-02] MEDS ORDERED: CEFTRIAXONE PMX 1GM/50ML 50 ML ONE (16:51)
[2017-07-02] MEDS ORDERED: CEFTRIAXONE PMX 1GM/50ML 50 ML IVPB ONE (17:00)
[2017-07-02 17:07] LABS: INTERNATIONAL NORMALIZED RATIO 0.99 (0.93-1.1); PROTHROMBIN TIME 10.3 Seconds (9.6-11.5)
[2017-07-02] MEDS ORDERED: SODIUM CHLORIDE FLUSH 10ML SYR IVF PRN (18:00)
[2017-07-02] MEDS ORDERED: INSU300I SQ (18:37)
[2017-07-02] MEDS ORDERED: ONDANSETRON 2MG/ML, 2ML IVPush PRN (19:00)
[2017-07-02] MEDS ORDERED: BISACODYL 10 MG SUPP PR PRN (19:00)
[2017-07-02] MEDS ORDERED: POLYETHYLENE GLYCOL 17 GM PACKET PO PRN (19:00)
[2017-07-02 19:24] LABS: FREE T4 (FREE THYROXINE) 1.27 ng/dL (0.76-1.46); THYROID STIMULATING HORMONE 0.925 mIU/L (0.358-3.740)
[2017-07-02 20:00] VITALS: BP 122/74
[2017-07-02] MEDS ORDERED: CEPH-368 PO (20:04)
[2017-07-02] MEDS: APIXABAN 5 MG TABLET PO SCH (20:43)
[2017-07-02] MEDS: SIMVASTATIN 20 MG TABLET PO SCH (20:43)
[2017-07-02] MEDS: DIVALPROEX 250 MG TABLET.DR PO SCH (20:43)
[2017-07-02] MEDS: SODIUM CHLORIDE 0.9% 1,000 ML IV SCH (20:44)
[2017-07-02] MEDS: LEVOTHYROXINE 100 MCG TABLET PO SCH (20:45)
[2017-07-02] MEDS ORDERED: TEMPLATE NON-FORMULARY MED. (Insulin Aspart** (Novolog**) 0 UNITS) SQ-INSULIN SCH (21:00)
[2017-07-02] MEDS ORDERED: INSULIN GLARGINE HUM REC ANLOG SQ SCH (21:00)
[2017-07-02] MEDS: INSULIN LISPRO 100 UNITS/ML, PEN LOW DOSE SS SQ-INSULIN SCH (21:19)
[2017-07-02] MEDS: ACETAMINOPHEN 325 MG TABLET PO PRN (22:50)
[2017-07-02] MEDS: INSULIN GLARGINE 100 UNITS/ML, PEN SQ-INSULIN SCH (22:51)
[2017-07-03 00:30] VITALS: BP 114/74
[2017-07-03] MEDS ORDERED: MAGNESIUM SULFATE PMX 2GM/50ML 50 ML IV ONE (00:30)
[2017-07-03] MEDS ORDERED: TEMAZEPAM 15 MG CAPSULE ONE (00:46)
[2017-07-03] MEDS: TEMAZEPAM 15 MG CAPSULE PO PRN ×2 (00:49→20:50)
[2017-07-03 02:00] VITALS: BP 109/66
[2017-07-03 06:14] LABS: BASOPHILS # (AUTO) 0.03 x10^3/uL (0-0.1); BASOPHILS % (AUTO) 1 % (0-1); EOSINOPHILS # (AUTO) 0.18 x10^3/uL (0-0.4); EOSINOPHILS % (AUTO) 3 % (1-7); LYMPHOCYTES # (AUTO) 2.53 x10^3/uL (1-3.4); LYMPHOCYTES % (AUTO) 41 % (22-44); MD NO; MEAN CORPUSCULAR HEMOGLOBIN 30.3 pg (27.0-34.8); MEAN CORPUSCULAR HGB CONC 34.2 g/dL (32.4-35.8); MEAN CORPUSCULAR VOLUME 88.5 fL (80-100); MEAN PLATELET VOLUME 8.2 fL (7.4-10.4); MONOCYTES # (AUTO) 0.68 x10^3/uL (0.2-0.8); MONOCYTES % (AUTO) 11 % (2-9); NEUTROPHILS # (AUTO) 2.72 x10^3/uL (1.8-6.8); NEUTROPHILS % (AUTO) 44 % (42-75); PLATELET COUNT 217 x10^3/uL (130-400); RED BLOOD COUNT 3.75 x10^6/uL (3.82-5.3); RED CELL DISTRIBUTION WIDTH 13.3 % (9.6-15.2)
[2017-07-03 06:17] LABS: ALBUMIN 2.5 g/dL (3.4-5.0); ANION GAP 8 mmol/L (5-15); CALCIUM 8.3 mg/dL (8.5-10.1); CHLORIDE 109 mmol/L (98-107)
[2017-07-03] MEDS: SODIUM CHLORIDE 0.9% 1,000 ML IV SCH ×2 (06:21→08:21)
[2017-07-03 06:24] LABS: ALANINE AMINOTRANSFERASE 13 U/L (12-78); ALKALINE PHOSPHATASE 66 U/L (45-117); BILIRUBIN,TOTAL 0.5 mg/dL (0.2-1.0); CREATININE 1.28 mg/dL (0.55-1.02); TOTAL PROTEIN 6.2 g/dL (6.4-8.2); TROPONIN I < 0.015 ng/mL (0.000-0.045)
[2017-07-03] MEDS: INSULIN LISPRO 100 UNITS/ML, PEN LOW DOSE SS SQ-INSULIN SCH (07:00)
[2017-07-03 08:15] VITALS: BP 120/71
[2017-07-03] MEDS: FLUOXETINE HCL 20 MG CAPSULE PO SCH (08:18)
[2017-07-03] MEDS: CALCIUM/VITAMIN D3 250-125 TABLET PO SCH (08:19)
[2017-07-03] MEDS: DIVALPROEX 250 MG TABLET.DR PO SCH ×2 (08:19→20:49)
[2017-07-03] MEDS: SENNA/DOCUSATE TABLET PO SCH (08:19)
[2017-07-03] MEDS: LEVOTHYROXINE 100 MCG TABLET PO SCH (08:19)
[2017-07-03] MEDS: APIXABAN 5 MG TABLET PO SCH ×2 (08:19→20:50)
[2017-07-03] MEDS ORDERED: ASPIRIN 81 MG TABLET EC PO SCH (09:00)
[2017-07-03 11:13] LABS: TROPONIN I < 0.015 ng/mL (0.000-0.045)
[2017-07-03] MEDS: INSULIN LISPRO 100 UNITS/ML, PEN SQ-INSULIN SCH ×3 (11:36→20:51)
[2017-07-03 14:43] VITALS: BP 97/59
[2017-07-03 16:40] VITALS: BP 100/49
[2017-07-03 18:54] VITALS: BP 102/61
[2017-07-03] MEDS: SIMVASTATIN 20 MG TABLET PO SCH (20:50)
[2017-07-03] MEDS: ACETAMINOPHEN 325 MG TABLET PO PRN (20:50)
[2017-07-03] MEDS: INSULIN GLARGINE 100 UNITS/ML, PEN SQ-INSULIN SCH (20:50)
[2017-07-04] MEDS: SODIUM CHLORIDE 0.9% 1,000 ML IV SCH (01:52)
[2017-07-04 02:33] VITALS: BP 119/72
[2017-07-04 05:42] LABS: CHLORIDE 112 mmol/L (98-107)
[2017-07-04 05:57] LABS: ALANINE AMINOTRANSFERASE 13 U/L (12-78); ALBUMIN 2.5 g/dL (3.4-5.0); ALKALINE PHOSPHATASE 59 U/L (45-117); ANION GAP 7 mmol/L (5-15); BILIRUBIN,TOTAL 0.2 mg/dL (0.2-1.0); CALCIUM 8.4 mg/dL (8.5-10.1); CREATININE 1.15 mg/dL (0.55-1.02); TOTAL PROTEIN 6.1 g/dL (6.4-8.2)
[2017-07-04] MEDS: INSULIN LISPRO 100 UNITS/ML, PEN SQ-INSULIN SCH ×2 (07:00→11:00)
[2017-07-04 07:28] VITALS: BP 130/68
[2017-07-04] MEDS: APIXABAN 5 MG TABLET PO SCH (08:29)
[2017-07-04] MEDS: LEVOTHYROXINE 100 MCG TABLET PO SCH (08:29)
[2017-07-04] MEDS: DIVALPROEX 250 MG TABLET.DR PO SCH (08:29)
[2017-07-04] MEDS: FLUOXETINE HCL 20 MG CAPSULE PO SCH (08:29)
[2017-07-04] MEDS: CALCIUM/VITAMIN D3 250-125 TABLET PO SCH (08:29)
[2017-07-04] MEDS: SENNA/DOCUSATE TABLET PO SCH (08:30)
[2017-07-04] MEDS ORDERED: DEXTROSE 4 GM TAB.CHEW PO PRN (08:30)
[2017-07-04] MEDS ORDERED: GLUCAGON 1 MG IM PRN (08:30)
[2017-07-04] MEDS ORDERED: DEXTROSE 50%, 50ML SYRINGE IVPush PRN (08:30)
[2017-07-04] MEDS ORDERED: SODIUM CHLORIDE FLUSH 10ML SYR IVF SCH (09:00)
[2017-07-04] MEDS ORDERED: POTASSIUM CHLORIDE 20 MEQ TAB.ER.PRT PO ONE (10:30)
[2017-07-04 12:15] VITALS: BP 124/66
[2017-07-04] MEDS ORDERED: INSU100I13 SQ-INSULIN (12:30)
[2017-07-04] MEDS ORDERED: APIX5TAB PO (12:30)
== END 2017-07-04 18:18 | disposition home or self-care (01) | DRG 308 ==
LOC: ED 17:48 → EDIP 17:49 → ED 18:55 → 4EST 19:06
PROVIDERS: ADMIT Internal Medicine; ATTEND Internal Medicine
PROC: 0T9B70Z Drainage of Bladder with Drainage Device, Via Natural or Artificial Opening (ICD-10-PCS; principal; 2017-07-02)
DX: I48.92 Unspecified atrial flutter (principal); N17.0 Acute kidney failure with tubular necrosis; E10.21 Type 1 diabetes mellitus with diabetic nephropathy; D68.69 Other thrombophilia; E10.22 Type 1 diabetes mellitus with diabetic chronic kidney disease; E10.649 Type 1 diabetes mellitus with hypoglycemia without coma; E44.1 Mild protein-calorie malnutrition; E87.1 Hypo-osmolality and hyponatremia; Z88.5 Allergy status to narcotic agent; E03.9 Hypothyroidism, unspecified; G40.909 Epilepsy, unspecified, not intractable, without status epilepticus; H05.20 Unspecified exophthalmos; I12.9 Hypertensive chronic kidney disease with stage 1 through stage 4 chronic kidney disease, or unspecified chronic kidney disease; N18.9 Chronic kidney disease, unspecified; R32 Unspecified urinary incontinence; Z82.3 Family history of stroke; Z82.49 Family history of ischemic heart disease and other diseases of the circulatory system; Z83.3 Family history of diabetes mellitus; Z87.891 Personal history of nicotine dependence; Z90.710 Acquired absence of both cervix and uterus; E05.00 Thyrotoxicosis with diffuse goiter without thyrotoxic crisis or storm; Z68.25 Body mass index [BMI] 25.0-25.9, adult
CPT/HCPCS: 36415; 71046; 76857; 80053; 81003; 82947; 82962; 83036; 83735; 83880; 84439; 84443; 84481; 84484; 85025; 85610; 85730; 93005; 93306; 96365; J0696; J1815; J3475; J7030

== ENCOUNTER → 2018-01-12 | Outpatient (CLI) | payer MEDICARE ==
[~2018-01-12] MED LIST changes: +APIX5TAB PO; +CEPH-368 PO; +INSU100I13 SQ-INSULIN; +INSU300I SQ
== END | disposition home or self-care (01) ==
LOC: RAD 09:52
PROVIDERS: ATTEND Psychiatry & Neurology Neurology
DX: G31.89 Other specified degenerative diseases of nervous system (principal); G25.0 Essential tremor; G23.9 Degenerative disease of basal ganglia, unspecified; J44.9 Chronic obstructive pulmonary disease, unspecified; E11.9 Type 2 diabetes mellitus without complications
CPT/HCPCS: 70551

== ENCOUNTER → 2018-03-16 | Outpatient (CLI) | payer MEDICARE | END | disposition home or self-care (01) | LOC: CFH 10:40 | PROVIDERS: ATTEND Nurse Practitioner | DX: J98.2 Interstitial emphysema (principal); R91.1 Solitary pulmonary nodule; I25.10 Atherosclerotic heart disease of native coronary artery without angina pectoris; Z90.49 Acquired absence of other specified parts of digestive tract | CPT/HCPCS: 71250 ==

== ENCOUNTER → 2018-06-22 | Outpatient (CLI) | payer MEDICARE | END | disposition home or self-care (01) | LOC: CFH 12:25 | PROVIDERS: ATTEND Psychiatry & Neurology Neurology | DX: E05.00 Thyrotoxicosis with diffuse goiter without thyrotoxic crisis or storm (principal) | CPT/HCPCS: 70480 ==

== ENCOUNTER → 2020-06-20 | Outpatient (CLI) | payer MEDICARE ==
[~2020-06-20] MED LIST changes: +ACET325T14 PO; +ASCO500T9 PO; +ATOR20TA PO; +CALC-151 PO; +FLUO10CA15 PO; -FLUO10CA7 PO; +HYDROCHLOROTHIAZIDE; +INSU100V33 SC; +LISI1TAB39 PO; -LISI1TAB5 PO; +METH-639 PO; +OLME1TAB22 PO; +OLMESARTAN; +OXYB5TAB10 PO; +PRIM50TA34 PO; +SULF-23 PO; -SULF1TAB24 PO; +VALS160T27 PO; +ZINC220C7 PO; -ZONI100C2 PO; +ZONI100C29 PO; +ZONI50CA10 PO; -ZONI50CA2 PO
== END | disposition home or self-care (01) ==
LOC: CFH 12:40
PROVIDERS: ATTEND Obstetrics & Gynecology Female Pelvic Medicine and Reconstructive Surgery
DX: N64.4 Mastodynia (principal); M81.0 Age-related osteoporosis without current pathological fracture
CPT/HCPCS: 77062; 77066; G0279